=== PATIENT | male | born 2000 | race Caucasian/White ===

== ENCOUNTER 2019-05-31 11:24 | Emergency (ER) | payer OTHER ==
[~2019-05-31] VITALS: Ht 185.4 cm; Wt 73.9 kg
[2019-05-31 11:30] VITALS: Ht 185.4 cm; Wt 73.9 kg
[2019-05-31 14:10] VITALS: BP 128/66
== END 2019-05-31 14:10 | disposition home or self-care (01) ==
LOC: ED 11:24
DX: S61.216A Laceration without foreign body of right little finger without damage to nail, initial encounter (principal); W26.9XXA Contact with unspecified sharp object(s), initial encounter; Y93.89 Activity, other specified; Y92.89 Other specified places as the place of occurrence of the external cause; Y99.8 Other external cause status
CPT/HCPCS: 90715; J2001